=== PATIENT | male | born 1935 | race African-American/Black ===

== ENCOUNTER → 2017-01-03 | Outpatient (CLI) | payer MEDICARE, BC ==
--- NOTE | 2017-01-03 12:06 | RAD ---
Deep Doppler renal ultrasound, 01/03/2017: History: Hypertension Duplex evaluation of the main renal arteries was attempted including grayscale, color-flow and spectral Doppler analysis. There is a known aneurysm of the distal abdominal aorta as delineated on the 12/20/2016 exam. The origins of the renal arteries from the aorta were not adequately delineated due to overlying bowel. The distal right renal artery at the renal hilar level demonstrates a peak systolic velocity 140 cm/s. The Doppler waveform demonstrates a good systolic upstroke. The distal left renal artery at the left hilar level demonstrates a peak systolic velocity of 86 cm/s. The left Doppler waveform is more rounded than on the right. IMPRESSION: 1. Abdominal aortic aneurysm. 2. Inadequate delineation of the main renal arteries due to overlying bowel.
== END | disposition home or self-care (01) ==
LOC: US 12-28 14:52
PROVIDERS: ATTEND Internal Medicine Nephrology
DX: N17.0 Acute kidney failure with tubular necrosis (principal); I10 Essential (primary) hypertension; I71.4 Abdominal aortic aneurysm, without rupture
CPT/HCPCS: 93975

== ENCOUNTER → 2017-03-08 | Outpatient (CLI) | payer MEDICARE, BC ==
--- NOTE | 2017-03-09 11:43 | CARD ---
APPROVED REPORT EXAM: Two-dimensional and M-mode echocardiogram with Doppler and color Doppler. Other Information Quality : Average Rhythm : NSR INDICATION LV Function:Systolic Congestive Heart Failure 2D DIMENSIONS RVDd2.4 (2.9-3.5cm)Left Atrium(2D)3.6 (1.6-4.0cm) IVSd1.3 (0.7-1.1cm)Aortic Root(2D)3.0 (2.0-3.7cm) LVDd4.9 (3.9-5.9cm)LVOT Diameter2.2 (1.8-2.4cm) PWd1.3 (0.7-1.1cm)LVDs3.9 (2.5-4.0cm) FS (%) 20.7 %SV48.4 ml LVEF(%)42.0 (>50%) Aortic Valve AoV Peak Jabier.98.8cm/sAoV VTI22.7cm AO Peak GR.3.9mmHgLVOT Peak Jabier.67.9cm/s LVOT VTI 16.77cmAO Mean GR.2mmHg GLENN (VMAX)2.26mu0VAO (VTI)2.76cm2 Mitral Valve MV E Ztupcjgh83.8cm/sMV E Peak Gr.160mmHg MV DECEL [id number] A Necqjbqx717.8cm/s MV E Mean Gr.2mmHgMV UDB37jo E/A Ratio0.5MV A Ehcmmgyi287df MVA (PHT)3.55cm2 Tricuspid Valve TR P. Skrqeyer257dl/sRAP OSINCCDM1oiBj TR Peak Gr.63ebHfMSXO78egNr LEFT VENTRICLE The left ventricle is normal size. There is borderline to mild concentric left ventricular hypertroph y. Left ventricle systolic function is moderately impaired. The Ejection Fraction is 35-40%. Basal la teral hypokinesis. Tissue Doppler imaging reveals moderate left ventricular diastolic dysfunction. Th ere is no ventricular septal defect visualized. RIGHT VENTRICLE The right ventricle is normal size. The right ventricular systolic function is normal. There is a pac emaker/ICD lead in the right ventricle. ATRIA The left atrium size is normal. The right atrium size is normal. The interatrial septum is intact wit h no evidence for an atrial septal defect or patent foramen ovale as noted on 2-D or Doppler imaging. AORTIC VALVE The aortic valve is calcified but opens well. The aortic valve is trileaflet. Doppler and Color Flow revealed no significant aortic regurgitation. There is no significant aortic valvular stenosis. MITRAL VALVE The mitral valve is normal in structure. There is no mitral valve stenosis. Doppler and Color Flow re vealed mild to moderate mitral regurgitation. TRICUSPID VALVE The tricuspid valve is normal in structure and function. Doppler and Color Flow revealed mild tricusp id regurgitation. The PA pressure was estimated at 25 mmHg. There is no tricuspid valve stenosis. PULMONIC VALVE The pulmonic valve is not well visualized. Doppler and Color Flow revealed no pulmonic valvular regur gitation. There is no pulmonic valvular stenosis. GREAT VESSELS The aortic root is normal in size. Pulmonary veins not recorded. The IVC is normal in size and collap ses >50% with inspiration. PERICARDIAL EFFUSION There is no evidence of significant pericardial effusion. Critical Notification Critical Value: No <Conclusion> Left ventricle systolic function is moderately impaired. The Ejection Fraction is 35-40%. There is a pacemaker/ICD lead in the right atrium and right ventricle. Mild to moderate mitral regurgitation. Mild tricuspid regurgitation. The PA pressure was estimated at 25 mmHg. There is no evidence of significant pericardial effusion.
== END | disposition home or self-care (01) ==
LOC: ECHO 08:42
PROVIDERS: ATTEND Internal Medicine Cardiovascular Disease
DX: I50.22 Chronic systolic (congestive) heart failure (principal)
CPT/HCPCS: 93306

== ENCOUNTER → 2017-05-04 | Outpatient (CLI) | payer MEDICARE, BC ==
--- NOTE | 2017-05-04 10:56 | RAD ---
Indication elevated PSA. Axial images to the abdomen and pelvis were obtained. No IV or gastrointestinal contrast was administered. Note is made of a previous examination almost 11 years ago. The lung bases are clear. No focal mass is seen in the liver or spleen. The gallbladder is grossly normal. No pancreatic abnormality is seen. There are no adrenal masses. There is bilateral hydronephrosis and moderate hydroureter. The urinary bladder is significantly distended and the hydronephrosis and hydroureter is likely secondary to the distended urinary bladder. The bladder distention itself is likely secondary to outlet obstructive process, enlarged prostate. There is an infrarenal abdominal aortic aneurysm. The aneurysm measures maximally approximately 5 cm. This represents an increase of approximately 1.5 cm relative to the previous exam there is slight dilatation of both common iliac arteries. Each measures approximately 1.7 cm in greatest dimension. There are degenerative changes in the lumbar spine significant degenerative changes involving the right hip. There are a few retroperitoneal lymph nodes. The etiology is unclear. Definite pathologic retroperitoneal adenopathy is not seen. 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 Urinary bladder is significantly distended and there is bilateral hydronephrosis and hydroureter. Infrarenal abdominal aortic aneurysm approaching 5 cm in size. No acute finding apparent in the abdomen or pelvis. Mild retroperitoneal adenopathy the etiology of which is not certain PQRS Compliance Statement: One or more of the following individualized dose reduction techniques were utilized for this examination: 1. Automated exposure control 2. Adjustment of the mA and/or kV according to patient size 3. Use of iterative reconstruction technique
--- NOTE | 2017-05-04 14:43 | RAD ---
Indication elevated PSA. Whole body static images were obtained as well as multiple coned images. 25 mCi of technetium labeled MDP was administered. No prior bone scan is available. There is relatively intense uptake in the right hip compatible with advanced degenerative changes seen on the CT examination earlier in the day. Slightly increased uptake at the sternoclavicular joints is likely degenerative. Increased activity is seen in both kidneys compatible with the hydronephrosis demonstrated on the CT examination. There is a small focus of increased uptake in the lower right anterior rib. This is nonspecific. Definite evidence of metastatic disease is not seen. IMPRESSION: Areas of increased activity compatible with degenerative uptake. No definite evidence of bony metastatic disease Small focus of increased activity in the lower right anterior rib is nonspecific
== END | disposition home or self-care (01) ==
LOC: NM 10:08
PROVIDERS: ATTEND Urology
DX: I71.4 Abdominal aortic aneurysm, without rupture (principal); N13.30 Unspecified hydronephrosis; N40.0 Benign prostatic hyperplasia without lower urinary tract symptoms; N28.82 Megaloureter; R97.20 Elevated prostate specific antigen [PSA]; R59.9 Enlarged lymph nodes, unspecified
CPT/HCPCS: 74176; 78306; 96374; A9503

== ENCOUNTER → 2017-06-01 | Outpatient (CLI) | payer MEDICARE, BC ==
--- NOTE | 2017-06-01 11:57 | RAD ---
Renal ultrasound 06/01/2017 at 1031 hours Indication: Hydronephrosis 05/04/2017 Technique: Multiple sonographic images of the kidneys was performed utilizing grayscale and color Doppler. Comparison: CT abdomen/pelvis 05/04/2017 Findings: The right kidney measures 10.2 x 5.3 x 5.0 cm. Left kidney measures 10.2 x 5.7 x 6.2 cm. There is mild left-sided hydronephrosis. There is near complete resolution of hydronephrosis involving the right kidney. The degree of hydronephrosis involving the left kidney has significantly improved. Anderson catheter is noted within the urinary bladder which is decompressed. No suspicious renal masses are identified. No renal calculi. Impression: Interval decompression of the renal collecting systems with near complete resolution of hydronephrosis involving the right kidney and mild persistent hydronephrosis involving the left kidney.
== END | disposition home or self-care (01) ==
LOC: US 09:49
PROVIDERS: ATTEND Urology
DX: N13.39 Other hydronephrosis (principal)
CPT/HCPCS: 76770

== ENCOUNTER → 2019-06-29 | Outpatient (CLI) | payer MEDICARE, BC | END | disposition home or self-care (01) | LOC: SPEC 14:29 | PROVIDERS: ATTEND Urology | DX: N30.01 Acute cystitis with hematuria (principal) | CPT/HCPCS: 87086 ==

== ENCOUNTER → 2019-11-15 | Outpatient (CLI) | payer MEDICARE, BC ==
--- NOTE | 2019-11-16 06:54 | RAD ---
MR#: [id number] Date of Study: 11/15/2019 Ordering Physician: NASIMA GARCIA, Referring Physician: NASIMA GARCIA, Ping: Olga Ruth RDMS RVT APPROVED REPORT Patient Location: OUT-PATIENT Indications AAA CAD Risk Factors Grayscale images of the abdominal aorta were technically difficult due to bowel gas interference. The proximal aorta was not well visualized. The mid abdominal aorta has grossly normal measurements at a pproximately 2.0 x 2.4 cm. The distal abdominal aorta measures approximately 4.2 x 4.7 cm on this canelo hnically difficult STUDY. COMPARISON IS MADE TO A CT SCAN OF THE ABDOMEN PERFORMED IN 2017 WHERE THE INFRARENAL ABDOMINAL AORTIC ANEURYSM WAS MEASURED APPROACHING 4.9 CM. OVERALL THIS ANEURYSM APPEARS T O BE STABLE IN SIZE COMPARED TO 2017. Duplex Results A/PTransverseLongitudinal Mid Aorta 2.0cm2.4cm Distal Aorta 4.2cm4.7cm Rt. Common Iliac Artery1.1cm1.1cm Critical Notification Critical Value: No <Conclusion> 1. Stable infra renal abdominal aortic in as a measuring approximately 4.7 cm, this was measured at a pproximately [address] scan in 2017. Signed by : Nasima Garcia, Electronically Approved : 11/16/2019 06:54:19
== END | disposition home or self-care (01) ==
LOC: US 08:35
PROVIDERS: ATTEND Internal Medicine Cardiovascular Disease
DX: I71.4 Abdominal aortic aneurysm, without rupture (principal); I25.10 Atherosclerotic heart disease of native coronary artery without angina pectoris
CPT/HCPCS: 93978

== ENCOUNTER → 2020-04-08 | Outpatient (CLI) | payer MEDICARE, BC ==
--- NOTE | 2020-04-08 15:53 | RAD ---
Bone scan 04/08/2020 CLINICAL HISTORY: Prostate cancer. TECHNIQUE: 3 hours after the intravenous administration of 25.0 mCi of Technetium 99m MDP, whole body imaging of the axial and appendicular skeleton was performed using the gamma camera. Comparison is made to the patient's bone scan dated 05/04/2017. Additional comparison is made to a CT scan of the chest , abdomen and pelvis dated 02/16/2018. Focal areas of increased activity are seen involving the cervical spine, the mid and lower thoracic spine, throughout the lumbar spine, both SI joints, both shoulders, both hips, right greater than left, both knees and both feet and ankles consistent with most likely areas of degenerative change. These have not significantly changed. Mild to moderate right hydronephrosis is seen. No new area of abnormal activity is seen to suggest definite evidence of skeletal metastatic disease. IMPRESSION: Areas of abnormally increased activity are seen scattered throughout the skeleton which most likely reflect areas of degenerative change as discussed above. No focal area of abnormal activity is seen to suggest evidence of a skeletal metastasis. Electronically signed by: Jose Quinteros MD (04/08/2020 3:50 PM) [id number]
== END | disposition home or self-care (01) ==
LOC: NM 08:33
PROVIDERS: ATTEND Urology
DX: C61 Malignant neoplasm of prostate (principal); N13.30 Unspecified hydronephrosis
CPT/HCPCS: 78306; A9503